=== PATIENT | male | born 1930 | race Caucasian/White ===

== ENCOUNTER → 2016-07-31 | Outpatient (CLI) | payer OTHER ==
[~2016-07-31] MED LIST: AMLODIPINE BESYL5 MG PO; PRINIVIL20 M1 PO; SIMVASTATIN40 MG PO
--- NOTE | ~2016-07-31 | CT71 ---
[facility] A Service of [facility] RADIOLOGY TEXT RESULTS PATIENT: CAREY RONDON [id number] : 34 UNIT #: [id number] AGE: [address]: SHI PAYAN SEX: M ORDER DR: [id number] [facility] [address] [place], [place] [address] [id number] O MR#: [id number] [facility] #: [id number] NAME: CAREY RONDON. : 1930 SEX: M STUDY DATE/TIME: 07/31/2016 10:45 UNIT: [facility] ROOM: STUDY DESCRIPTION: CT Head Wo Contrast Attending Physician: Shi Payan M.D. Referring Physician: Shi Payan M.D. Ordering Physician: Staff Doctor Not On Primary Care Physician: Mckinley Bill Jr., M.D. MEDICAL IMAGING REPORT This report is preliminary unless electronic signature is present EXAM Head CT without contrast. 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 Abnormal hemorrhagic focus seen on previous outside imaging studies. Evaluate for resolution. TECHNIQUE Axial images were obtained without contrast and compared to MRI from outside institution dated 12/26/2013. This CT exam was performed with one or more of the following radiation dose reduction techniques: automatic exposure control, adjustment of mA and/or kV according to patient size, and iterative reconstruction. FINDINGS Generalized atrophy is noted. Basal ganglier calcifications are seen and linear calcifications are seen in the centrum semiovale bilaterally. No hemorrhages are noted. There is no evidence of mass lesion or midline shift. Compared to the previous MRI. No significant changes are noted. Extraaxial structures are unremarkable. IMPRESSION No evidence of hemorrhage. Benign-appearing calcifications are seen bilaterally. No acute findings. Dictated by... Brennen Gonzalez M.D. THIS IS AN ELECTRONICALLY VERIFIED REPORT Brennen Gonzalez M.D. at 08/08/2016 10:03 AM RLF/jt [facility] A Service of [facility] RADIOLOGY TEXT RESULTS PATIENT: CAREY RONDON LOCATION: [facility] #: [id number] : 34 UNIT #: [id number] AGE: [address]: SHI PAYAN SEX: M ORDER DR: TD: 08/07/2016 22:08 JOB #: [id number] MEDICAL IMAGING REPORT Page 1 of 1 COPY
== END | disposition home or self-care (01) ==
LOC: CCAT 10:18
DX: R90.89 Other abnormal findings on diagnostic imaging of central nervous system (principal)
CPT/HCPCS: 70450